=== PATIENT | female | born 1955 | race Caucasian/White ===

== ENCOUNTER 2024-05-07 13:29 | Emergency (ER) | payer OTHER, SELFPAY ==
[2024-05-07 13:31] VITALS: BP 105/81
[2024-05-07 13:53] VITALS: BMI 31.3
[2024-05-07 14:00] VITALS: BP 110/72
--- NOTE | 2024-05-07 14:38 | ED.GENMED ---
History of Present Illness
General
Chief Complaint: Cough
Source: patient
Time Seen by Provider: 05/07/24 13:41
History of Present Illness
History of Present Illness:
68-year-old female presenting to the emergency department for evaluation of cough, congestion and sore throat that all began this past Monday with symptoms mildly worse throughout the weekend, cough continued today prompting her to come to the ER
for further evaluation. Patient attempted to follow-up with primary care provider but was unable to be seen until May 23 and also attempted to be seen by her ENT but was also unable to be seen until May 22. Patient denies any fevers, chills,
rigors. She notes that her son was also sick with similar symptoms prior to her symptoms starting. She has attempted Mucinex and a humidifier with minimal relief. She also attempted Nasacort at the onset of symptoms which did not seem to help
either.
Past History
Past History
ED Past Medical History: Hypothyroidism and Other (History of osteoarthritis)
ED Past Surgical History: Appendectomy, Gynecological (Patient had a tubal ligation) and Orthopedic (The patient had ligament repair of the left thumb, left foot reconstructive surgery, arthroscopy of the left knee.)
Social History
Tobacco: Non-smoker
Alcohol: None
Drug: None
Personal:
Living: with family
Employment: Employed
Review of Systems
Review of Systems
All Other Systems: ROS reviewed and negative except as documented in HPI and ROS
Phy Exam
Physical Exam
Physical Exam:
GENERAL: Alert , in no apparent distress
EYE: conjunctiva clear
NECK: Supple
ENT: o/p clr, mmm.
CARDIAC: Regular rate and rhythm, no murmur
LUNGS: Scattered wheeze posterior lung nogueira bilateral. Non productive cough during exam. No respiratory distress
NEUROLOGICAL: Alert and oriented
SKIN: Warm and dry, skin intact.
MUSCULOSKELETAL: well perfused.
PSYCH: Normal and appropriate interaction.
Scores
Heart Failure Risk
Heart Failure Risk Score: Not Applicable
Heart Score for Chest Pain Patients
STEMI patient?: Not applicable
Withdrawal Assessment of Alcohol
Withdrawal Assessment Completed?: Not applicable
Course
Orders/Labs/Results
Orders:
Orders
05/07/24 13:41
CR Chest - 2 Views Urgent
Comment:
Reason For Exam: cough, URI like symptoms
05/07/24 13:52
COVID-19 Antigen Urgent
Source: Nasal Swab
05/07/24 14:38
Ipratropium/Albuterol Sulfate [Duoneb] 3 ml INH R NOW ONE
Prednisone [Deltasone] 50 mg PO NOW STA
Vital Signs
Initial and Last Documented VS:
Initial Vital Signs
Temp Pulse Resp BP Pulse Ox
99.1 F 90 20 105/81 98
05/07/24 13:31 05/07/24 13:31 05/07/24 13:31 05/07/24 13:31 05/07/24 13:31
Last Documented Vital Signs
Temp Pulse Resp BP Pulse Ox
99.1 F 88 20 110/72 97
05/07/24 13:31 05/07/24 14:00 05/07/24 14:00 05/07/24 14:00 05/07/24 14:00
MDM/Problems Addressed
Differential Diagnosis Includes:
Viral syndrome, pneumonia, asthma, bronchitis
MDM/Problems Addressed:
68-year-old female presenting the emergency department for evaluation of URI-like symptoms since Monday of last week, no relief with djre-slq-zjyymoe measures. Attempted to see primary care but was unable to be seen for about 2 weeks. Arrives
here hemodynamically stable and in no acute respiratory distress. Scattered wheezes during lung exam. Chest x-ray, COVID test ordered for further evaluation. Prednisone and albuterol nebulizer ordered. Suspect bronchitis as most likely
diagnosis. Anticipate discharge home with steroid taper and inhaler.
*Radiology
Radiology exam reviewed: preliminary read by ED provider (normal cxr)
*Pulse Oximetry
Patient hypoxic: no
*Critical Care Note
Total Time (30-74mins, 75-104mins- exclusive of procedures): Not Applicable
Patient Management
Escalation/DeEscalation of care consider admission/obs:
Patient CXR is unremarkable. Remains stable. No hypoxia. Rx for prednisone and albuterol inhaler sent to pharmacy. Stable for d/c home and aware of return precautions
ED Attending Note
-
Portions of this chart may have been created with voice recognition software.� Occasional wrong word or��sound alike� substitutions may have occurred due to the inherent limitations of voice recognition software.
Discharge Plan
Departure
Patient Disposition: Home (Routine Discharge)
Date of Disposition: 05/07/24
Time of Disposition: 15:23
Patient with high blood pressure during this ER visit?: No
Discharge Problem:
Cough
Instructions: Cough, Adult (DC)
Prescriptions:
New
prednisone 10 mg Tablet
See Rx Instructions .ROUTE .COMPLEX Qty: 30 0RF
Rx Instructions:
Take By Mouth:
40 mg daily x3 days, 30 mg daily x3 days,
20 mg daily x3 days, 10 mg daily x3 days.
benzonatate 200 mg capsule
200 mg PO TID PRN (Reason: Cough) Qty: 12 0RF
albuterol sulfate 90 mcg/actuation HFA aerosol inhaler
2 puff inhalation QID PRN (Reason: shortness of breath or wheezing) Qty: 6.7 0RF
No Action
levothyroxine 125 MCG tablet
125 mcg PO .DAILY SIX DAYS WEEK
od-evt-ZQ-Iz-Hp-wfhoove-lutein 1 EACH tablet
1 ea PO DAILY@1500
cholecalciferol (vitamin D3) [Vitamin D3] 1,000 UNIT tablet,chewable
2,000 unit PO DAILY@1500
mupirocin 1 APPLIC ointment
1 applic intranasal BID Qty: 1 0RF
Patient Comments:
Patient started the treatment on monday07/03/2020 in the evening. Patient administered this medication at home this morning at 0800 on 07/06/2020
sennosides [senna] 1 TABLET tablet
2 tab PO BID 0RF
aspirin 325 MG tablet
325 mg PO DAILY 0RF
Rx Instructions:
Take daily x4 weeks for blood clot prevention
ibuprofen 400 MG tablet
400 mg PO BID Qty: 1 0RF
Rx Instructions:
Take with food.
Do not take within 2 hours of Aspirin.
docusate sodium 100 MG capsule
100 mg PO BID 0RF
Referrals:
Teresa Dudley DO [Family Provider] -
Interventions
Interventions:
*Risk Screen - Suicide Last Done: 05/07/24 14:29
*General Assessment Last Done: 05/07/24 15:40
*Neglect/Abuse Screening Last Done: 05/07/24 14:29
ED- Fall Risk Assessment Last Done: 05/07/24 15:40
*ED COVID-19 Vaccine History Last Done: 05/07/24 15:40
*Nursing Disposition Last Done: 05/07/24 15:40
ED- Pulmonary Assessment Last Done: 05/07/24 14:29
Discharge Date and Time
Discharge Date/Time: 05/07/24 15:41
Print Language: CENTRAL AFRICAN
[2024-05-07] MEDS: DUONEB 3 ML INH (14:46)
[2024-05-07] MEDS: DELTASONE 50 MG PO (14:46)
[2024-05-07 15:07] LABS: COVID-19 Antigen Negative (Negative)
== END 2024-05-07 15:41 | disposition home or self-care (01) ==
LOC: EMR 13:29
PROVIDERS: Physician Assistant Medical; EMERGENCY PHYSICIAN Student in an Organized Health Care Education/Training Program; FAMILY PHYSICIAN Emergency Medicine
DX: R05.9 Cough, unspecified (principal); Z11.52 Encounter for screening for COVID-19
CPT/HCPCS: 99283; 94640; 71046; 87811

== ENCOUNTER → 2024-06-18 10:59 | Outpatient (REF) | payer OTHER, SELFPAY ==
[2024-06-18 11:47] LABS: % Basophils 1.1 % (0-2); % Eosinophils 2.5 % (0-6); % Immature Granulocytes 0.2 % (0-0.5); % Lymphocytes 30.4 % (20.5-51.1); % Monocytes 11.5 % (1.7-9.3); % Neutrophils 54.3 % (42.2-75.2); Absolute Basophils 0.1 10^3/uL (0-0.2); Absolute Eosinophils 0.1 10^3/uL (0-0.7); Absolute Lymphocytes 1.6 10^3/uL (1.2-3.4); Absolute Monocytes 0.6 10^3/uL (0.1-0.6); Absolute Neutrophils 2.9 10^3/uL (1.4-6.5); Hematocrit 42.3 % (37.0-47.0); Hemoglobin 13.9 g/dL (12.0-16.0); Mean Corp Hgb Conc. 32.9 g/dL (33.0-37.0); Mean Corpuscular Hgb 30.6 pg (27.0-31.0); Mean Corpuscular Volume 93.2 fL (81.0-99.0); Mean Platelet Volume 10.2 fL (7.4-10.4); Nucleated Red Blood Cells % 0 %; Platelet Count 281 10^3/uL (130-400); Red Blood Cell Count 4.54 10^6/uL (4.20-5.40); Red Cell Dist. Width 13.4 % (11.5-14.5); White Blood Cell Count 5.3 10^3/uL (4.8-10.8)
[2024-06-18 12:18] LABS: ALT (SGPT) 16 U/L (0-35); AST (SGOT) 22 U/L (14-36); Albumin 4.2 g/dl (3.5-5.0); Alkaline Phosphatase 58 U/L (38-126); Blood Urea Nitrogen 17 mg/dl (7-17); Carbon Dioxide 32 mmol/L (22-30); Chloride 107 mmol/L (98-107); Glucose 90 mg/dl (70-99); HDL Cholesterol 56 mg/dl; LDL Cholesterol, Calculated 162 mg/dl; Potassium 4.3 mmol/L (3.5-5.1); Sodium 146 mmol/L (135-145); Total Cholesterol 242 mg/dl (50-199); Total Protein 6.4 g/dl (6.3-8.2); Triglyceride 124 mg/dl (10-149); Very Low Density Lipoprotein 24 mg/dl (0-30); eGFR > 60.00
[2024-06-18 12:41] LABS: TSH Reflex To Free T4 0.41 uIU/ml (0.47-4.68)
[2024-06-18 13:11] LABS: Free T4 1.47 ng/dl (0.78-2.19)
[2024-06-18 14:07] LABS: Glycohemoglobin (HgbA1c) 5.6 % (4.0-5.6)
== END ==
LOC: REG 10:59
PROVIDERS: ATTENDING PHYSICIAN Emergency Medicine
DX: E66.3 Overweight (principal); E03.9 Hypothyroidism, unspecified; E78.2 Mixed hyperlipidemia; E07.9 Disorder of thyroid, unspecified; Z29.9 Encounter for prophylactic measures, unspecified; Z13.1 Encounter for screening for diabetes mellitus
CPT/HCPCS: 36415; 80053; 80061; 83036; 84439; 84443; 85025

== ENCOUNTER → 2024-09-05 13:13 | Outpatient (REF) | payer OTHER, SELFPAY | LOC: HWWDC 13:13 | PROVIDERS: ATTENDING PHYSICIAN Obstetrics & Gynecology; FAMILY PHYSICIAN Emergency Medicine | DX: Z12.31 Encounter for screening mammogram for malignant neoplasm of breast (principal) | CPT/HCPCS: 77063; 77067 ==

== ENCOUNTER → 2024-09-19 10:41 | Outpatient (REF) | payer OTHER, SELFPAY | LOC: WDC 10:41 | PROVIDERS: ATTENDING PHYSICIAN Obstetrics & Gynecology; FAMILY PHYSICIAN Emergency Medicine | DX: R92.8 Other abnormal and inconclusive findings on diagnostic imaging of breast (principal) | CPT/HCPCS: 77065 ==

== ENCOUNTER → 2024-09-27 06:17 | Outpatient (REF) | payer OTHER, SELFPAY ==
--- NOTE | 2024-09-27 09:11 | OID.BR.INTR ---
[facility] Breast Navigator - Initial
- -
Date of Contact: 09/27/24
Met with patient. Patient given written information on navigator services available at [facility]. Will follow up as needed per protocol.
== END ==
LOC: WDC 06:17
PROVIDERS: ATTENDING PHYSICIAN Obstetrics & Gynecology; FAMILY PHYSICIAN Emergency Medicine
DX: R92.1 Mammographic calcification found on diagnostic imaging of breast (principal)
CPT/HCPCS: 88305; 19081; 76098; A4648

== ENCOUNTER → 2024-12-19 13:07 | Outpatient (REF) | payer OTHER, SELFPAY ==
[2024-12-19 15:00] LABS: HDL Cholesterol 62 mg/dl; LDL Cholesterol, Calculated 185 mg/dl; Total Cholesterol 272 mg/dl (50-199); Triglyceride 127 mg/dl (10-149); Very Low Density Lipoprotein 25 mg/dl (0-30)
[2024-12-19 15:13] LABS: Free T4 1.24 ng/dl (0.78-2.19)
[2024-12-19 15:27] LABS: TSH 2.04 uIU/ml (0.47-4.68)
== END ==
LOC: REG 13:07
PROVIDERS: ATTENDING PHYSICIAN Emergency Medicine
DX: E03.9 Hypothyroidism, unspecified (principal); E78.00 Pure hypercholesterolemia, unspecified
CPT/HCPCS: 36415; 80061; 84439; 84443

== ENCOUNTER → 2025-01-02 08:18 | Outpatient (REF) | payer OTHER, SELFPAY | LOC: WDC 08:18 | PROVIDERS: ATTENDING PHYSICIAN Surgery | DX: N60.92 Unspecified benign mammary dysplasia of left breast (principal) | CPT/HCPCS: 19281; A4648 ==

== ENCOUNTER 2025-01-03 06:05 | Day surgery (SDC) | payer OTHER, MEDICARE, SELFPAY ==
[2024-12-19 11:38] LABS: Hematocrit 44.6 % (37.0-47.0); Hemoglobin 14.3 g/dL (12.0-16.0); Mean Corp Hgb Conc. 32.1 g/dL (33.0-37.0); Mean Corpuscular Hgb 29.2 pg (27.0-31.0); Mean Corpuscular Volume 91.2 fL (81.0-99.0); Mean Platelet Volume 9.7 fL (7.4-10.4); Platelet Count 282 10^3/uL (130-400); Red Blood Cell Count 4.89 10^6/uL (4.20-5.40); Red Cell Dist. Width 13.2 % (11.5-14.5); White Blood Cell Count 5.5 10^3/uL (4.8-10.8)
[2024-12-19 12:33] LABS: ALT (SGPT) 17 U/L (0-35); AST (SGOT) 21 U/L (14-36); Albumin 4.5 g/dl (3.5-5.0); Alkaline Phosphatase 63 U/L (38-126); Blood Urea Nitrogen 16 mg/dl (7-17); Carbon Dioxide 31 mmol/L (22-30); Chloride 103 mmol/L (98-107); Glucose 91 mg/dl (70-99); Potassium 4.2 mmol/L (3.5-5.1); Sodium 141 mmol/L (135-145); Total Bilirubin 1.3 mg/dl (0.2-1.3); Total Protein 6.6 g/dl (6.3-8.2); eGFR > 60.00
[2024-12-19 14:17] VITALS: BMI 31.0
[2024-12-22 04:14] LABS: Vitamin D 1,25 Dihydroxy 55.3 pg/mL (19.9-79.3)
[2025-01-03 08:20] VITALS: BP 118/65
[2025-01-03] MEDS: NORMOSOL-R/PLASMALYTE-A 1000 IV (08:29)
[2025-01-03 08:30] VITALS: BMI 31.0
[2025-01-03] MEDS: VANCOCIN 530 MG IV (09:26)
[2025-01-03 13:34] VITALS: BP 106/74
--- NOTE | 2025-01-03 13:40 | W.IMMPOSTOP ---
Surgical Immed Post Op Note
-
Primary Surgeon: Rinku
Assisting Surgeon: None
Pre-op Diagnosis: Left breast atypical hyperplasia
Post-op Diagnosis: Left breast atypical hyperplasia
Procedure Performed: Left localized lumpectomy
Anesthesia Type: TIVA
Specimen / Cultures: Left lumpectomy and lateral margin
Estimated Blood Loss: 4cc
Complications: None
Operative Findings: Clip and area in specimen
--- NOTE | 2025-01-03 13:42 | OR.RPT ---
Operative Report
Operative Report
Procedure date: 01/03/25
Pre-Op DX: Left breast atypical hyperplasia
Post-Op DX: Left breast atypical hyperplasia
Procedure: left localized lumpectomy
Surgeon: Riknu
The patient is a 69-year-old female who experienced an interval change on screening mammography leading to biopsy showing atypical ductal hyperplasia. She presents for localized lumpectomy. On the day prior to the procedure the patient presented
to the breast imaging center and a Maureen reflector was placed in the appropriate area right next to the biopsy clip.
On the day of the procedure she presented to the same-day surgical services and was prepped. DVT and antibiotic prophylaxis were provided and she was taken to the operating room. She verified site and procedure. In the supine position intravenous
sedation was delivered and the right breast was prepped and draped in usual sterile fashion.
Appropriate timeout was performed by all staff members. Tissues were anesthetized with 1% lidocaine plain and a circumareolar incision was made sharply with the blade. An oncoplastic plane was entered with the cautery and elevated medially to the
area of highest signal.
Wide lumpectomy was performed using the cautery. There was good signal in the specimen as it was being elevated but then that signal disappeared probably from dislodging the reflector or cauterizing it.
Time antibody was noted and the specimen was oriented for the pathologist. Specimen radiography showed the biopsy site and the clip. No reflector was present. Careful search for the reflector and any other involved tissue was made. An additional
lateral margin was harvested and sent for permanent analysis. This margin was oriented as well.
Hemostasis was maintained. Marcaine 0.5% plain was instilled and a small portion of Surgicel was placed in the resection cavity. The wound was closed using simple interrupted 3-0 plain on deep and intermediate tissue and skin was closed with
simple interrupted 3-0 plain in a running subcuticular 4 Monocryl.
All sponge needle and instrument counts are correct and the patient was transferred to the recovery room in stable condition.
()
[2025-01-03 13:49] VITALS: BP 105/69
[2025-01-03 14:04] VITALS: BP 118/80
== END 2025-01-03 14:37 | disposition home or self-care (01) ==
LOC: SDS 06:05
PROVIDERS: ATTENDING PHYSICIAN Surgery; FAMILY PHYSICIAN Emergency Medicine
DX: N60.92 Unspecified benign mammary dysplasia of left breast (principal); N60.32 Fibrosclerosis of left breast
CPT/HCPCS: 19301; 88305; 88307; 36415; 76098; 80053; 82652; 84134; 85027; 93005; A4648

== ENCOUNTER → 2025-04-11 10:52 | Outpatient (REF) | payer OTHER, SELFPAY | LOC: MRI 3T 10:52 | PROVIDERS: ATTENDING PHYSICIAN Surgery; FAMILY PHYSICIAN Emergency Medicine | DX: N60.99 Unspecified benign mammary dysplasia of unspecified breast (principal) | CPT/HCPCS: 77049; A9585 ==

== ENCOUNTER 2025-04-11 12:38 | Emergency (ER) | payer OTHER, SELFPAY ==
[2025-04-11 12:42] VITALS: BP 114/75
[2025-04-11 12:52] VITALS: BMI 32.4
[2025-04-11 12:57] LABS: Glucose - Point of Care 105 mg/dl (70-99)
[2025-04-11 13:00] VITALS: BP 109/82
[2025-04-11 13:23] LABS: % Basophils 0.9 % (0-2); % Eosinophils 2.8 % (0-6); % Immature Granulocytes 0.4 % (0-0.5); % Lymphocytes 29.6 % (20.5-51.1); % Monocytes 10.6 % (1.7-9.3); % Neutrophils 55.7 % (42.2-75.2); Absolute Eosinophils 0.1 10^3/uL (0-0.7); Absolute Lymphocytes 1.4 10^3/uL (1.2-3.4); Absolute Monocytes 0.5 10^3/uL (0.1-0.6); Absolute Neutrophils 2.6 10^3/uL (1.4-6.5); Hematocrit 41.4 % (37.0-47.0); Hemoglobin 13.6 g/dL (12.0-16.0); Mean Corp Hgb Conc. 32.9 g/dL (33.0-37.0); Mean Corpuscular Hgb 29.5 pg (27.0-31.0); Mean Corpuscular Volume 89.8 fL (81.0-99.0); Nucleated Red Blood Cells % 0 %; Platelet Count 235 10^3/uL (130-400); Red Blood Cell Count 4.61 10^6/uL (4.20-5.40); White Blood Cell Count 4.6 10^3/uL (4.8-10.8)
[2025-04-11 13:37] VITALS: BP 108/79
[2025-04-11 13:48] LABS: ALT (SGPT) 12 U/L (0-35); AST (SGOT) 17 U/L (14-36); Albumin 3.7 g/dl (3.5-5.0); Alkaline Phosphatase 58 U/L (38-126); Blood Urea Nitrogen 17 mg/dl (7-17); Calcium 9.4 mg/dl (8.4-10.2); Carbon Dioxide 28 mmol/L (22-30); Chloride 109 mmol/L (98-107); Estimated Creatinine Clearance -18 ml/min; Glucose 108 mg/dl (70-99); Sodium 141 mmol/L (135-145); Total Bilirubin 0.8 mg/dl (0.2-1.3); Total Protein 5.9 g/dl (6.3-8.2); eGFR > 60.00
[2025-04-11 13:58] LABS: Troponin I < 0.012 ng/ml
[2025-04-11 14:00] VITALS: BP 108/81
--- NOTE | 2025-04-11 14:19 | ED.GENMED ---
History of Present Illness
General
Chief Complaint: Fainting Sensation
Source: patient
Exam Limitations: none
Time Seen by Provider: 04/11/25 13:55
Nursing documentation reviewed up to this point in time: agreed with
History of Present Illness
History of Present Illness:
69-year-old female from outpatient MRI show MRI of her breast she was lying prone and IV contrast after the procedure she felt sweaty and nauseous brought to the ER where she is now feeling fine numerous allergies none previously to IV contrast when
I saw her I offered her IV fluids etc. she states that she feels well would like to go home I did briefly review the case with our staff radiologist recommend she should be premedicated before any future MRI scans with contrast
Past History
Past History
ED Past Medical History: Cancer, Hypothyroidism and Other (History of osteoarthritis)
ED Past Surgical History: Appendectomy, Gynecological (Patient had a tubal ligation) and Orthopedic (The patient had ligament repair of the left thumb, left foot reconstructive surgery, arthroscopy of the left knee.)
Social History
Tobacco: Non-smoker
Alcohol: None
Drug: None
Personal:
Living: with family
Employment: Employed
Review of Systems
Review of Systems
All Other Systems: Not applicable
Constitutional: Denies fever or fatigue
Respiratory: Denies trouble breathing
Cardiac: Reports diaphoresis
ABD/GI: Reports nausea
Phy Exam
Physical Exam
Physical Exam:
Physical Exam
General: no apparent distress, not acutely ill
Neck: No jaw
Heart: s1/s2 regular rate and rhythm, no murmur. equal radial pulses.
Lungs: no acute respiratory distress. clear bilaterally
Neuro: alert and oriented. no focal neurological deficits
Skin: no rash
Psychiatric: well kept. interactive and cooperative
Extremities: no edema.
Course
Orders/Labs/Results
Orders:
Orders
04/11/25 12:58
EKG [Electrocardiogram (*1)] Urgent
Reason for Study: Other
Other Reason for Exam: fainting sensation
EKG- Treatment ONCE
04/11/25 13:16
Complete Blood Count/With Diff Urgent
Comprehensive Metabolic Panel Urgent
Troponin I Urgent
Abnormal Lab Results
04/11/25 04/11/25
12:56 13:16
WBC 4.6 L 10^3/uL
(4.8-10.8)
MCHC 32.9 L g/dL
(33.0-37.0)
Monocytes % 10.6 H %
(1.7-9.3)
Chloride 109 H mmol/L
(98-107)
Glucose 108 H mg/dl
(70-99)
Total Protein 5.9 L g/dl
(6.3-8.2)
POC Glucose 105 H mg/dl
(70-99)
04/11/25 13:16
04/11/25 13:16
Vital Signs
Initial and Last Documented VS:
Initial Vital Signs
Temp Pulse Resp BP Pulse Ox
97.5 F 47 12 114/75 98
04/11/25 12:42 04/11/25 12:42 04/11/25 12:42 04/11/25 12:42 04/11/25 12:42
Last Documented Vital Signs
Temp Pulse Resp BP Pulse Ox
97.5 F 57 11 108/79 97
04/11/25 12:42 04/11/25 13:45 04/11/25 13:45 04/11/25 13:37 04/11/25 13:45
MDM/Problems Addressed
Differential Diagnosis Includes:
Contrast reaction vasovagal allergic reaction
MDM/Problems Addressed:
Diaphoresis nausea
Chronic conditions affecting care:
Multi allergies cancer
Acute Exacerbation and/or Progression of Chronic Illness:
Multi allergies
*Pulse Oximetry
SaO2: 97
Oxygen Mode of Delivery: Room air
Patient hypoxic: no
*Metaphysics Teacher Interpretation
Rate: normal
Interpretation: normal
Heart Rate: 78
Rhythm: sinus
*Critical Care Note
Total Time (30-74mins, 75-104mins- exclusive of procedures): Not Applicable
Update Note
Update Note:
Update 2:30 PM patient hemodynamically stable she is asymptomatic will like to go home
ED Attending Note
-
Portions of this chart may have been created with voice recognition software.� Occasional wrong word or��sound alike� substitutions may have occurred due to the inherent limitations of voice recognition software.
Discharge Plan
Departure
Patient Disposition: Home (Routine Discharge)
Date of Disposition: 04/11/25
Time of Disposition: 14:18
Patient with high blood pressure during this ER visit?: No
Condition: Good
Discharge Problem:
Reaction to contrast media
Instructions: Anaphylaxis - Discharge instructions
Prescriptions:
No Action
levothyroxine [Synthroid] 100 mcg Tablet
100 mcg PO DAILY
Activity Restrictions/Additional Instructions:
Drink plenty of fluids
Benadryl as needed for itching
You can obtain an MRI with contrast in the future but let the store facility technician or physicians know and you should be premedicated with medications before hand
Interventions
Interventions:
*Risk Screen - Suicide Last Done: 04/11/25 12:42
*General Assessment Last Done: 04/11/25 12:42
*Neglect/Abuse Screening Last Done: 04/11/25 12:42
*ED- Fall Risk Assessment Last Done: 04/11/25 12:53
*ED COVID-19 Vaccine History Last Done: 04/11/25 12:53
*Nursing Disposition Last Done: 04/11/25 14:22
ED- Cardiac Assessment Last Done: 04/11/25 12:55
ED- Neurological Assessment Last Done: 04/11/25 12:55
Discharge Date and Time
Print Language: ZAMBIAN
== END 2025-04-11 14:22 | disposition home or self-care (01) ==
LOC: EMR 12:38
PROVIDERS: EMERGENCY PHYSICIAN Emergency Medicine
DX: R11.0 Nausea (principal); T50.8X5A Adverse effect of diagnostic agents, initial encounter; E03.9 Hypothyroidism, unspecified
CPT/HCPCS: 99284; 80053; 82962; 84484; 85025; 93005

== ENCOUNTER → 2025-06-19 09:12 | Outpatient (REF) | payer OTHER, SELFPAY ==
[2025-06-19 10:23] LABS: HDL Cholesterol 52 mg/dl; LDL Cholesterol, Calculated 156 mg/dl; Very Low Density Lipoprotein 30 mg/dl (0-30)
[2025-06-21 12:34] LABS: Lipoprotein a (Lp a) 37 mg/dL (<=29)
== END ==
LOC: REG 09:12
PROVIDERS: ATTENDING PHYSICIAN Emergency Medicine
DX: E03.9 Hypothyroidism, unspecified (principal); E78.00 Pure hypercholesterolemia, unspecified
CPT/HCPCS: 36415; 80061; 82172; 83695; 84443

== ENCOUNTER → 2025-08-01 09:13 | Outpatient (REF) | payer SELFPAY | LOC: HWRAD 09:13 | DX: E78.00 Pure hypercholesterolemia, unspecified (principal); E78.41 Elevated Lipoprotein(a) | CPT/HCPCS: 75571 ==

== ENCOUNTER → 2025-08-20 13:08 | Outpatient (REF) | payer OTHER, SELFPAY | LOC: PAVMRI 13:08 | PROVIDERS: ATTENDING PHYSICIAN Orthopaedic Surgery; FAMILY PHYSICIAN Emergency Medicine | DX: M25.472 Effusion, left ankle (principal) | CPT/HCPCS: 73721 ==

== ENCOUNTER → 2025-09-22 10:28 | Outpatient (REF) | payer OTHER, SELFPAY | LOC: HWWDC 10:28 | PROVIDERS: ATTENDING PHYSICIAN Surgery; FAMILY PHYSICIAN Emergency Medicine | DX: N60.99 Unspecified benign mammary dysplasia of unspecified breast (principal); Z12.39 Encounter for other screening for malignant neoplasm of breast; Z12.31 Encounter for screening mammogram for malignant neoplasm of breast | CPT/HCPCS: 77063; 77067 ==